=== PATIENT | male | born 1990 | race Caucasian/White ===

== ENCOUNTER → 2019-09-21 08:05 | Outpatient (CLI) | payer OTHER, SELFPAY ==
--- NOTE | 2019-09-21 | DI.US.S_ITS ---
PROCEDURE: US SCROTUM INDICATIONS: SCROTAL MASS TECHNIQUE: Real-time scanning was performed of the scrotum and testicles, with image documentation. Color and pulse Doppler interrogation was performed of both testicles. COMPARISON: None. FINDINGS: Right: Testicle is normal in size at 1.9 x 2.8 x 4.3 cm, and homogenous in echotexture. Epididymis is normal in overall size and morphology. No hydrocele or varicoceles. Overlying scrotal skin is normal in thickness. Left: Testicle is normal in size at 1.8 x 2.7 x 3.4 cm, and homogeneous in echotexture. Epididymis is normal in overall size and morphology except for presence of a epididymal tail cyst measuring up to 1.2 x 1.7 x 1.8 cm. No hydrocele or varicoceles. Overlying scrotal skin is normal in thickness. Doppler: Color and pulse Doppler demonstrate normal and symmetric arterial flow in both testicles. IMPRESSION: Testicular parenchyma appears normal bilaterally. There is, however, a 1.2 x 1.7 x 1.8 cm simple appearing left epididymal tail cyst as the likely cause for the palpable abnormality reported. Dictated by: Miguelangel Mcfadden M.D. on 09/21/2019 at 10:51 Approved by: Miguelangel Mcfadden M.D. on 09/21/2019 at 10:54
== END ==
PROVIDERS: PCP Family Medicine; Visit Provider Family Medicine
DX: N50.89 Other specified disorders of the male genital organs (principal); N50.3 Cyst of epididymis
CPT/HCPCS: 76870